=== PATIENT | female | born 1940 | race Hispanic/Latino ===

== ENCOUNTER 2023-08-25 06:42 | Day surgery (SDC) | payer OTHER ==
[~2023-08-25] VITALS: Ht 157.5 cm; Wt 72.6 kg
[~2023-08-25 06:42] MED LIST: AMLO-258 PO; LISI1TAB53 PO; ROSU20TA73 PO; VITAMIN D PO
[2023-08-25] MEDS ORDERED: INDOMETHACIN 100 MG SUPP.RECT RC ONE (10:00)
[2023-08-25 11:10] VITALS: BP 127/58; PULSE 81; RESP 12
[2023-08-25] MEDS ORDERED: SUCCINYLCHOLINE CHLORIDE 20 MG/ML 10 ML VIAL ONE (11:52)
[2023-08-25] MEDS ORDERED: PROPOFOL 10 MG/ML 20ML VIAL IV ONE (11:52)
[2023-08-25] MEDS ORDERED: GLYCOPYRROLATE 0.2 MG/ML 5 ML VIAL ONE (11:53)
[2023-08-25] MEDS ORDERED: IOHEXOL-350 50ML VIAL IV ONE (12:10)
[2023-08-25] MEDS ORDERED: ONDANSETRON 4MG INJ ONE (13:41)
== END 2023-08-25 13:55 | disposition home or self-care (01) ==
LOC: DAH 06:42 → ENDO 06:42
PROVIDERS: ATTEND Internal Medicine Gastroenterology
DX: R93.2 Abnormal findings on diagnostic imaging of liver and biliary tract (principal); K80.70 Calculus of gallbladder and bile duct without cholecystitis without obstruction; I10 Essential (primary) hypertension; E78.5 Hyperlipidemia, unspecified; M19.90 Unspecified osteoarthritis, unspecified site; Z79.899 Other long term (current) drug therapy; Z79.01 Long term (current) use of anticoagulants; Z90.12 Acquired absence of left breast and nipple
CPT/HCPCS: 43264; 74328; 43273; J0330; J2704; J2405; J3490; Q9967; A4620; A4215 ×2; A4223; A7002; A4222; A4221; A4663; A4216; J7030; A4606; C1769; 74330